=== PATIENT | male | born 1955 | race African-American/Black ===

== ENCOUNTER 2019-04-09 07:39 | Day surgery (SDC) | payer BC ==
[~2019-04-09 07:39] MED LIST: CHONDR SU A NA/HYALUR INTRAOC KIT (SURGICARE) ONE; EPINEPHRINE INJ/PF 1 MG/1 ML AMPULE ONE; KETOROLAC TROMETHAMINE 0.45% 4 DROP/0.4 ML DROPERETTE OS PRN; LIDOCAINE 1%/PHENYLEPHRINE 1.5% 1 ML VIAL ONE
[2019-04-09] MEDS ORDERED: MIDAZOLAM 2 MG/2 ML INJ ONE (08:05)
[2019-04-09] MEDS ORDERED: ONDANSETRON HCL INJ/PF 4 MG/2 ML SDV ONE (08:05)
[2019-04-09] MEDS ORDERED: FENTANYL CITRATE INJ/PF 100 MCG/2 ML AMPUL ONE (08:06)
[2019-04-09] MEDS: BESIFLOXACIN HCL 0.6% OPH SUSP 5 ML BOTTLE OS PRN ×4 (08:22→09:20)
[2019-04-09] MEDS: TETRACAINE HCL 0.5% OPH SOLN 4 ML OS PRN ×3 (08:22→09:01)
[2019-04-09] MEDS: TROPICAMIDE 1% OPH SOLN 15 ML OS PRN ×3 (08:22→08:42)
[2019-04-09] MEDS: CYCLOPENTOLATE 0.2%/PHENYLEPHRINE 1% OPH SOLN 2 ML OS PRN ×3 (08:22→08:42)
[2019-04-09] MEDS ORDERED: TRYPAN BLUE 0.06 % OPH SOLN 0.5 ML DISP.SYRIN ONE (09:11)
[2019-04-09] MEDS: DORZOLAMIDE HCL 2%/TIMOLOL MALEAT 0.5% OPH SOLN 10 ML OS PRN ×2 (09:20)
--- NOTE | 2019-04-09 13:33 | Operative Report ---
Operative Report-[facility] Operative Report: DATE OF SURGERY: 04/09/2019 PREOPERATIVE DIAGNOSIS: Cataract, left eye, other age related POSTOPERATIVE DIAGNOSIS: Cataract, left eye, other age related OPERATION: Complex Cataract extraction with insertion of an IOL of the left eye and use of trypan blue dye Intraocular Lens Model: [19.5 sn60wf] Reason or surgery was difficulty seeing road signs SURGEON: Enrike Milligan MD ANESTHESIA: Topical PROCEDURE: After obtaining appropriate consent, the patient's left eye was prepped and draped in a sterile fashion as well as the surgeon in the sterile manner and cataract surgery was started. First a paracentesis blade was used to make a side-port incision. Viscoelastic was used to inflate the anterior chamber. Next a 2.4 mm incision was made with a 2.4 mm blade, clear corneal temporarily. A continuous capsulorrhexis was made using a cystotome and Utrata forceps. Following this hydrodissection was carried out to make the lens fully loose and mobile and it was rotated freely. Following this, a divide and conquer technique was used to phacoemulsify the lens.. The remaining cortex was removed with an irrigation/aspiration. Provisc was instilled into the capsular bag to inflate the bag. The intraocular lens was placed. The remaining viscoelastic material was removed with irrigation/aspiration. Following this, the incision was found to be watertight. Prior to making the capsulorhexis, trypan blue dye was used to stain the anterior capsule due to poor visualization of the anterior capsule. Besivance and Cosopt was instilled into the eye and a protective shield was placed over the eye. The patient was returned to the postoperative recovery in a stable condition.
== END 2019-04-09 10:05 | disposition home or self-care (01) ==
LOC: SC 07:39
PROVIDERS: ATTEND Internal Medicine
DX: H25.89 Other age-related cataract (principal); H25.11 Age-related nuclear cataract, right eye; E11.9 Type 2 diabetes mellitus without complications; Z79.4 Long term (current) use of insulin; Z86.73 Personal history of transient ischemic attack (TIA), and cerebral infarction without residual deficits; F17.210 Nicotine dependence, cigarettes, uncomplicated
CPT/HCPCS: 66982; 82962; 00142; V2632; J2250; J3490 ×3; J0171; J3010; J2405; J2370; 142